=== PATIENT | male | born 1945 | race Caucasian/White ===

== ENCOUNTER 2017-02-14 23:32 | Emergency (ER) | payer MEDICARE, OTHER ==
[~2017-02-14] VITALS: Ht 167.6 cm; Wt 63.5 kg
--- NOTE | 2017-02-15 00:05 | NUR ---
PT A/OX1 PT BREATHING EFFORTLESSLY ON ROOM AIR, PT STATES SHE FELL ON HER LAST WRIST NUT DOES NOT KNOW WHEN SHE FELL, PT JOSE, PT ON MONITOR, IN GOWMD Tina AT BEDSIDE, WILL CONTINUE TO MONITOR.
--- NOTE | 2017-02-15 00:58 | NUR ---
[facility] ETA 30MINS.
[2017-02-15 01:52] VITALS: BP 104/58
--- NOTE | 2017-02-15 01:52 | NUR ---
Patient discharged to [facility] ambulance for transport back to [facility] in stable condition. Written and verbal after care instructions given to remote sensing analyst. EMT verbalizes understanding of instruction. Report given to receiving nurse at SNF by JORDAN Jimenez. AGUILA Oleary noted on DC. Denies complaint on DC.
== END 2017-02-15 01:55 ==
LOC: ER 23:38
DX: S60.222A Contusion of left hand, initial encounter (principal); E11.9 Type 2 diabetes mellitus without complications; F32.9 Major depressive disorder, single episode, unspecified; I10 Essential (primary) hypertension; M85.80 Other specified disorders of bone density and structure, unspecified site; F20.9 Schizophrenia, unspecified; X58.XXXA Exposure to other specified factors, initial encounter; Y92.89 Other specified places as the place of occurrence of the external cause; Y93.89 Activity, other specified; Y99.8 Other external cause status
CPT/HCPCS: 73130-TC; A4606; Z7610

== ENCOUNTER 2017-04-09 16:01 | Inpatient (IN) | payer MEDICARE, OTHER ==
[~2017-04-09] VITALS: Ht 177.8 cm; Wt 55.3 kg
--- NOTE | 2017-04-09 16:04 | NUR ---
LUIS F LOPEZ FROM [facility] TO ER BED 09. SENT BY PMD FOR ALLEN. REPORTS STATES FAILURE TO THRIVE. GOWNED AND PLACED ON MONITOR. STABLE VITALS [employer] MEMBER. AWAITING MD VILLA.
--- NOTE | 2017-04-09 16:28 | NUR ---
DR HAAS AT BEDSIDE FOR EVAL.
[2017-04-09] MEDS ORDERED: IV NS 0.9% 1,000 ML BAG IV ONE (16:30)
--- NOTE | 2017-04-09 16:35 | NUR ---
IV LINE STARTED BLOOD DRAWN AND SENT TO LAB.
[2017-04-09] MEDS ORDERED: FAMO20TA8 PO ×2 (16:50→17:12)
[2017-04-09] MEDS ORDERED: DIAZ5TAB4 PO (16:50)
[2017-04-09] MEDS ORDERED: DILT120C9 PO (16:50)
[2017-04-09] MEDS ORDERED: FERR-58 PO (16:50)
[2017-04-09] MEDS ORDERED: MEGE400O PO (16:50)
[2017-04-09] MEDS ORDERED: CETI-232 PO (16:50)
[2017-04-09] MEDS ORDERED: FOLI1TAB16 PO (16:50)
[2017-04-09] MEDS ORDERED: ALPR0.25 PO (16:50)
[2017-04-09] MEDS ORDERED: SERT50TA PO (16:50)
[2017-04-09] MEDS ORDERED: GABA-534 PO (16:50)
[2017-04-09] MEDS ORDERED: GLIP10TA11 PO (16:50)
[2017-04-09] MEDS ORDERED: DOCU100T2 PO (16:50)
[2017-04-09] MEDS ORDERED: NATE120T6 PO (16:50)
[2017-04-09] MEDS ORDERED: DABI75CA3 PO (16:50)
[2017-04-09] MEDS ORDERED: LEVO150T8 PO (16:50)
[2017-04-09] MEDS ORDERED: MONT10TA22 PO (16:50)
[2017-04-09] MEDS ORDERED: METO50TA3 PO (16:50)
[2017-04-09] MEDS ORDERED: GLIP5TAB13 PO (16:50)
[2017-04-09] MEDS ORDERED: ATOR20TA PO (16:50)
[2017-04-09] MEDS ORDERED: MULT-213 PO (16:50)
[2017-04-09 16:51] LABS: CALCIUM, SERUM 8.9 mg/dL (8.5-10.1); CARBON DIOXIDE 28 mmol/L (21-32); CHLORIDE 107 mmol/L (98-107); CREATININE 0.8 mg/dL (0.6-1.3); GLUCOSE 88 mg/dL (74-106); POTASSIUM 3.9 mmol/L (3.5-5.1); SODIUM SERUM 143 mmol/L (136-145); UREA NITROGEN, BLOOD 20 mg/dL (7-18)
[2017-04-09 16:52] LABS: BASOPHILS # (AUTO) 0.1 /CMM (0.0-0.2); BASOPHILS % (AUTO) 0.9 % (0.0-2.0); EOSINOPHILS % (AUTO) 0.9 % (0.0-6.0); HEMATOCRIT 40 % (33-45); HEMOGLOBIN 13.5 g/dL (11.5-14.8); LYMPHOCYTES # (AUTO) 2.1 /CMM (0.8-4.8); LYMPHOCYTES % (AUTO) 38.2 % (20.0-44.0); MEAN CORPUSCULAR HEMOGLOBIN 32 PG (26.0-33.0); MEAN CORPUSCULAR HGB CONC 34 g/dl (31.0-36.0); MEAN CORPUSCULAR VOLUME 97 fL (82-100); MONOCYTES # (AUTO) 0.4 /CMM (0.1-1.30); MONOCYTES % (AUTO) 7.7 % (2.0-12.0); NEUTROPHILS # (AUTO) 2.9 /CMM (1.8-8.9); NEUTROPHILS % (AUTO) 52.3 % (43.0-81.0); PLATELET COUNT (AUTO) 137 /CMM (150-450); RDW COEFFICIENT OF VARIATION 13.7 (11.5-15.0); RED BLOOD CELL COUNT(AUTO) 4.17 MIL/uL (4.0-5.2); WHITE BLOOD COUNT (AUTO) 5.6 K/uL (4.3-11.0)
[2017-04-09 16:53] LABS: INR 1.09 (0.87-1.13); PROTHROMBIN TIME 11.3 SECS (9.5-12.7)
--- NOTE | 2017-04-09 17:02 | NUR ---
RADIOLOGY AT BEDSIDE FOR CHEST XRAY.
[2017-04-09 17:05] LABS: APPEARANCE,URINE Clear (CLEAR); BILIRUBIN,URINE SMALL (NEGATIVE); BLOOD, URINE Trace-intact Ery/uL (NEGATIVE); COLOR,URINE Yellow (YELLOW); KETONES,URINE 15 (NEGATIVE); LEUKOCYTE ESTERASE ,URINE Negative (NEGATIVE); NITRITE, URINE Negative (NEGATIVE); PROTEIN,URINE Negative (NEGATIVE); UGLUCOSE Negative (NEGATIVE)
[2017-04-09 17:05] LABS: ALANINE AMINOTRANSFERASE 18 U/L (12-78); ALBUMIN 3.2 g/dL (3.4-5.0); ALKALINE PHOSPHATASE 45 U/L (46-116); ASPARTATE AMINOTRANSFERASE 20 U/L (15-37); BILIRUBIN,DIRECT 0.2 mg/dL (0.0-0.2); BILIRUBIN,TOTAL 0.8 mg/dL (0.2-1.0); TOTAL PROTEIN, SERUM 5.9 g/dL (6.4-8.2)
[2017-04-09 17:11] LABS: ACETAMINOPHEN < 2 ug/ml (10-30); SALICYLATE 0.2 mg/dL (2.8-20.0)
[2017-04-09] MEDS ORDERED: DIVA125C PO (17:12)
[2017-04-09] MEDS ORDERED: ACET-868 PO (17:12)
[2017-04-09] MEDS ORDERED: CHOL20004 PO (17:12)
[2017-04-09] MEDS ORDERED: PRAV20TA PO (17:12)
[2017-04-09] MEDS ORDERED: MIRT15TA PO (17:12)
[2017-04-09] MEDS ORDERED: MAG30ORA PO (17:12)
[2017-04-09] MEDS ORDERED: OLAN2.5T3 PO (17:12)
[2017-04-09] MEDS ORDERED: TEMA7.5C PO (17:12)
[2017-04-09] MEDS ORDERED: MAGN400O6 PO (17:12)
--- NOTE | 2017-04-09 17:14 | NUR ---
PT TO RADIOLOGY FOR HEAD CT SCAN VIA [facility].
[2017-04-09 17:22] LABS: BACTERIA,URINE Rare /HPF (None Seen); SQUAMOUS EPITHELIAL CELL,UR Few /HPF (None Seen); WBC,URINE NONE SEEN /HPF (0-3)
[2017-04-09 17:25] LABS: THYROID STIMULATING HORMONE 0.998 uIU/mL (0.358-3.74)
--- NOTE | 2017-04-09 17:57 | NUR ---
PATIENT GOINT TO [facility] 323-2, ACCEPTED BY DR RIVERA, DX FAILURE TO THRIVE
--- NOTE | 2017-04-09 18:22 | NUR ---
REPORT GIVEN TO DEMAR. PT AWAITING TRANSFER TO FLOOR.
--- NOTE | 2017-04-09 18:45 | NUR ---
RN Notes: Received report from Brien. Patient arrived to unit, alert oriented x1 stable with non-labored breathing. Vital signs: BP 105/51, pulse 64, RR 18, temp 98.0, SPO2 100%. No facial grimaces noted. IV site on right forearm patent and intact. Patient with family members. Bed in lowest position. Call light within reach. Will endorse to next shift.
[2017-04-09] MEDS ORDERED: ONDANSETRON HCL/PF 4 MG/2 ML VIAL IVP PRN (19:00)
[2017-04-09] MEDS ORDERED: ACETAMINOPHEN 325 MG TABLET PO PRN (19:00)
[2017-04-09] MEDS ORDERED: Z GUARD REMEDY 2 OZ OINT TP PRN (19:00)
--- NOTE | 2017-04-09 19:00 | NUR ---
MS RN OPENING NOTES RECEIVE PT RESTING IN BED, A/OX 1. NO S/S OF RESPIRATORY DISTRESS OR SOB. SAFETY MEASURES IN PLACE, ON LOW BED TO ENSURE SAFETY. CALL LIGHT WITHIN REACH. WILL CONTINUE TO MONITOR
--- NOTE | 2017-04-09 19:01 | NUR ---
MS RN NOTES PT ALERT TO SELF BUT CONFUSED, PT REFUSING TO EAT. WILL CONTINUE TO MONITOR
[2017-04-09 20:00] VITALS: BP 116/68
[2017-04-09] MEDS: IV D5/0.45 NACL 1,000 ML IV PRN (20:27)
[2017-04-09] MEDS: DIVALPROEX SODIUM 125 MG CAP.SPRINK PO SCH (21:00)
[2017-04-09] MEDS: OLANZAPINE 2.5 MG TABLET PO SCH (21:00)
--- NOTE | 2017-04-09 21:57 | NUR ---
MS RN NOTES PT REFUSED MEDICATION TYLENOL 325 MG 2 TABS PAIN COMPLAIN MILD PAIN AT RIGHT ABDOMEN / USE JORGE BROWN. UPON GIVING MEDICATION PATIENT PUT IN HER MOUTH AND SPIT IT, PER PATIENT SHE DOESN'T LIKE IT DESPITE RISKS AND BENEFITS OFFERED 3 TIMES PT REFUSED. SON ANTOINE AT BEDSIDE, AWARE
[2017-04-09] MEDS: ATORVASTATIN 10 MG TABLET PO SCH (22:00)
[2017-04-09] MEDS: TEMAZEPAM 7.5 MG CAPSULE PO SCH (22:00)
[2017-04-09] MEDS: MIRTAZAPINE 15 MG TABLET PO SCH (22:00)
--- NOTE | 2017-04-09 22:10 | NUR ---
MS RN NOTES ALL EVENING MEDICATIONS DUE UNABLE TO ADMINISTER PT IS REFUSING MEDICATIONS PO DESPITE RISKS AND BENEFITS OFFERED 3 TIMES STILL REFUSING SON AT BEDSIDE (ANTOINE) WILL MADE Kee AWARE ABOUT THIS
--- NOTE | 2017-04-09 23:54 | NUR ---
CODE STATUS 2220: PLACED A CALL AND SPOKE TO DR. MATIAS AMANDA HOSPITALIST CATERING ASSOCIATE FOR THE NIGHT REGARDING RESPONSIBLE LIBERTARIAN SON (ANTOINE NERI) WANTS HER MOTHER CODE STATUS TO BE DNR/DNI. WITNESSED BY CHARGE NURSE, PER MATIAS CHURCHILL AND ORDERED DNR/DNI CODE STATUS NOTED AND CARRIED OUT RELAYED ALSO PT IS REFUSING EVENING MEDICATIONS RP AWARE.
--- NOTE | 2017-04-10 01:31 | NUR ---
PATIENT REFUSES EKG AT THIS TIME. JORDAN DE LUNA NOTIFIED.
--- NOTE | 2017-04-10 02:12 | NUR ---
MS RN NOTES EKG AND TROPONIN I LAB BLOOD DRAW PATIENT REFUSES DESPITE RISKS AND BENEFITS OFFERED 3 TIMES STILL REFUSES RP AWARE AND MD PATIENT ACCOUNTS CLERK WILL TRY AGAIN LATER PER PATIENT SHE WANTED TO REST
[2017-04-10 04:00] VITALS: BP 110/70
[2017-04-10] MEDS: IV D5/0.45 NACL 1,000 ML IV PRN ×2 (04:35→14:05)
--- NOTE | 2017-04-10 06:22 | NUR ---
MS RN CLOSING NOTES PATIENT COMFORTABLY ASLEEP AND EASILY AWAKEN, HEAD OF BED ELEVATED FOR BETTER LUNG EXPANSION TOLERATING ROOM AIR 100% RFA G 20 D5 1/2 NS RUNNING IV SITE NO S/S OF INFILTRATED, PATIENT DENIES PAIN AT THIS TIME. RESPIRATIONS EVEN AND UNLABORED. NO S/S OF ACUTE DISTRESS, NO SOB, NO COUGH, NO CONGESTION, SKIN WARM AND DRY TO TOUCH, AFEBRILE, ALL NURSING CARE NEEDS PROVIDED AND RENDERED, REPOSITIONED EVERY 2 HOURS WITH CONE SEWER. KEPT CLEAN AND DRY AND COMFORTABLE, GOOD SKIN ARE PROVIDED. FREQUENT VISUAL CHECK DONE FOR SAFETY EVERY 2 HOURS. SAFE HAZARD FREE ENVIRONMENT PROVIDED. CALL LIGHT WITHIN EASY TO REACH, ON LOW BED AT ALL TIMES TO ENSURE SAFETY, WILL ENDORSE TO THE NEXT SHIFT CONTINUE PLAN OF CARE
--- NOTE | 2017-04-10 07:39 | NUR ---
KRISTY POON RN: INITIAL NOTE RECEIVED OT A/OX1. PT PREVIOUSLY REFUSING MEDICATIONS AND MD AWARE. SATING AT 97% ON ROOM AIR. NO DISTRESS NOTED. NO SOB NOTED. NO PAIN NOTED. INCONTINENT WITH DIAPER. SKIN INTACT. ON REGULAR DIET. RFA IV RUNNING D5 1/2 NS AT 125ML/HR. SITE CLEAR. NO REDNESS NOTED. NO BLEEDING NOTED. RESTING COMFORTABLY IN BED. CALL LIGHT WITHIN REACH.
[2017-04-10 07:53] LABS: BASOPHILS % (AUTO) 0.4 % (0.0-2.0); EOSINOPHILS % (AUTO) 0.8 % (0.0-6.0); HEMATOCRIT 41 % (33-45); HEMOGLOBIN 13.6 g/dL (11.5-14.8); LYMPHOCYTES # (AUTO) 1.7 /CMM (0.8-4.8); LYMPHOCYTES % (AUTO) 32.1 % (20.0-44.0); MEAN CORPUSCULAR HEMOGLOBIN 32 PG (26.0-33.0); MEAN CORPUSCULAR HGB CONC 33 g/dl (31.0-36.0); MEAN CORPUSCULAR VOLUME 97 fL (82-100); MONOCYTES # (AUTO) 0.5 /CMM (0.1-1.30); MONOCYTES % (AUTO) 8.9 % (2.0-12.0); NEUTROPHILS # (AUTO) 3.1 /CMM (1.8-8.9); NEUTROPHILS % (AUTO) 57.8 % (43.0-81.0); PLATELET COUNT (AUTO) 133 /CMM (150-450); RDW COEFFICIENT OF VARIATION 13.6 (11.5-15.0); RED BLOOD CELL COUNT(AUTO) 4.25 MIL/uL (4.0-5.2); WHITE BLOOD COUNT (AUTO) 5.3 K/uL (4.3-11.0)
[2017-04-10 08:00] VITALS: BP 119/60
[2017-04-10 08:02] LABS: ALANINE AMINOTRANSFERASE 20 U/L (12-78); ALKALINE PHOSPHATASE 45 U/L (46-116); ASPARTATE AMINOTRANSFERASE 20 U/L (15-37); BILIRUBIN,TOTAL 0.7 mg/dL (0.2-1.0); CALCIUM, SERUM 8.8 mg/dL (8.5-10.1); CARBON DIOXIDE 27 mmol/L (21-32); CHLORIDE 111 mmol/L (98-107); CREATININE 0.7 mg/dL (0.6-1.3); GLUCOSE 117 mg/dL (74-106); MAGNESIUM 2.2 mg/dL (1.8-2.4); PHOSPHORUS 2.1 mg/dL (2.5-4.9); POTASSIUM 4.2 mmol/L (3.5-5.1); SODIUM SERUM 143 mmol/L (136-145); TOTAL PROTEIN, SERUM 5.6 g/dL (6.4-8.2); UREA NITROGEN, BLOOD 11 mg/dL (7-18)
[2017-04-10 08:09] LABS: CHOLESTEROL 159 mg/dL (<200); HDL CHOLESTEROL 66 mg/dL (40-60); LDL 81 mg/dL (0-99); THYROID STIMULATING HORMONE 2.017 uIU/mL (0.358-3.74); TRIGLYCERIDES 49 mg/dL (30-150)
[2017-04-10] MEDS: CHOLECALCIFEROL 1,000 UNIT TABLET (VIT D3) PO SCH (08:31)
[2017-04-10] MEDS: DIVALPROEX SODIUM 125 MG CAP.SPRINK PO SCH ×2 (08:31→21:01)
[2017-04-10] MEDS: OLANZAPINE 2.5 MG TABLET PO SCH ×4 (08:31→21:08)
[2017-04-10] MEDS: FAMOTIDINE (20 MG) 20 MG TABLET PO SCH (08:31)
[2017-04-10 16:00] VITALS: BP 141/70
[2017-04-10] MEDS ORDERED: K PHOS NEUTRAL 250 MG TABLET PO ONE (16:30)
[2017-04-10] MEDS: BOOST PLUS FOOD-VANILLA 237 ML BOX PO SCH (17:14)
--- NOTE | 2017-04-10 18:48 | NUR ---
MED SURGE RN: CLOSING NOTE PT A/OX1. NO DISTRESS NOTED. SLIGHT PAIN NOTED IN LEFT HIP WHEN MOVING. Z-RAY DONE STAT. NO FRACTURES NOTED. INCONTINENT AND USES DIAPER. TOOK ALL MEDICATIONS ON TIME. NO ADVERSE REACTIONS NOTED. PT REFUSED TO EAT MEALS THROUGH OUT DAY. NOTIFIED AND AND AWARE. RFA IV RUNNING D5 1/2 NS AT 125ML/HR. SITE PATENT. PSYCH CONSULT WAS DONE. FAMILY AT BEDSIDE. RESTING COMFORTABLY IN BED. CALL LIGHT WITHIN REACH.
--- NOTE | 2017-04-10 19:45 | NUR ---
MS RN INITIAL NOTES PT SIS IN BED AWAKE AND ALERT WITH DAUGHTER AT BEDSIDE. NO SIGNS OF SOB OR DISTRESS BREATHING EVENLY AND UNLABORED ON ROOM. PT IS DIFFICULT WITH CARE, DAUGHTER AT BEDSIDE TO ASSIST. BED IS IN LOW AND LOCKED POSITION. WILL CONTINUE TO MONITOR.
[2017-04-10 20:00] VITALS: BP 131/76
[2017-04-10] MEDS: ATORVASTATIN 10 MG TABLET PO SCH (21:01)
[2017-04-10] MEDS: MIRTAZAPINE 15 MG TABLET PO SCH (21:01)
[2017-04-10] MEDS: TEMAZEPAM 7.5 MG CAPSULE PO SCH (21:02)
--- NOTE | 2017-04-10 22:00 | NUR ---
PT IS REFUSING MEDS, MULTIPLE ATTEMPTS HAVE BEEN MADE AND EDUCATION IS GIVEN BUT PT CONTINUES TO REFUSE
--- NOTE | 2017-04-10 23:10 | NUR ---
ATTEMPTED TO CONTACT SON DUE TO PT REFUSING MEDICATION AND BEING UNCOOPERATIVE AND COMBATIVE. UNABLE TO LEAVE A VOICEMAIL BECAUSE IT IS FULL AND DOESN'T ALLOW FOR IT.
--- NOTE | 2017-04-11 01:00 | NUR ---
PT CONTINUES TO BE COMBATIVE AND NONCOMPLIANT, PT REMOVED IV AND CLOTHING INCLUDING DIAPER AND THREW THE ARTICLES ON THE FLOOR. ATTEMPTED TO REORIENT PATIENT AND DEESCALATE THE SITUATION BUT PT REFUSES TO COOPERATE.
--- NOTE | 2017-04-11 02:52 | NUR ---
CONTACTED DR. SALCEDO, ORDER FOR SOFT WRIST RESTRAINTS WAS GIVEN. WILL CONTINUE TO MONITOR PT
[2017-04-11] MEDS: IV D5/0.45 NACL 1,000 ML IV PRN ×3 (06:03→23:28)
--- NOTE | 2017-04-11 06:43 | NUR ---
MS RN CLOSING PT IS IN BED RESTING. NO SIGNS OF SOB OR DISTRESS. SOFT RESTRAINTS ARE IN PLACE. INTERVENTIONS HAVE BEEN TAKEN THROUGHOUT THE SHIFT. NO SIGNS OF SOB OR DISTRESS. NEW IV WAS STARTED ON RFA#24. WILL ENDORSE TO DAYSHIFT
[2017-04-11 08:00] VITALS: BP 119/71
--- NOTE | 2017-04-11 08:00 | NUR ---
MS RN OPENING NOTE PATIENT IS ALERT AND ORIENTED x1. NO PAIN AT THIS TIME. NO SOB OR DISTRESS NOTED. CALL LIGHT WITHIN REACH. SAFETY MEASURES IMPLEMENTED. SOFT RESTRAINTS IN PLACE AT THIS TIME. IV INTACT AND PATENT NO REDNESS OR SWELLING NOTED, IV FLUIDS RUNNING AT THIS TIME. ABLE TO COMMUNICATE NEEDS AT TIME. WILL CONTINUE TO MONITOR
[2017-04-11 08:06] LABS: CALCIUM, SERUM 8.7 mg/dL (8.5-10.1); CARBON DIOXIDE 25 mmol/L (21-32); CHLORIDE 110 mmol/L (98-107); CREATININE 0.7 mg/dL (0.6-1.3); GLUCOSE 107 mg/dL (74-106); PHOSPHORUS 2.6 mg/dL (2.5-4.9); POTASSIUM 3.4 mmol/L (3.5-5.1); SODIUM SERUM 145 mmol/L (136-145); UREA NITROGEN, BLOOD 4 mg/dL (7-18)
[2017-04-11] MEDS: OLANZAPINE 2.5 MG TABLET PO SCH ×4 (09:13→21:06)
[2017-04-11] MEDS: FAMOTIDINE (20 MG) 20 MG TABLET PO SCH (09:13)
[2017-04-11] MEDS: CHOLECALCIFEROL 1,000 UNIT TABLET (VIT D3) PO SCH (09:13)
[2017-04-11] MEDS: DIVALPROEX SODIUM 125 MG CAP.SPRINK PO SCH ×2 (09:14→21:06)
[2017-04-11] MEDS: BOOST PLUS FOOD-VANILLA 237 ML BOX PO SCH ×2 (09:14→16:27)
[2017-04-11] MEDS ORDERED: POTASSIUM CHLORIDE 20 MEQ TAB.PRT.SR PO SCH (10:30)
--- NOTE | 2017-04-11 11:00 | NUR ---
MS RN NOTE PATIENT REFUSED POTASSIUM PILLS. EXPLAINED RISKS AND BENEFITS X3. PATIENT SPIT PILLS OUT. WILL ENDORSE TO [employer]BON SEQUESTRATION PLANT MANAGER NURSE
[2017-04-11 16:00] VITALS: BP 127/49
--- NOTE | 2017-04-11 18:50 | NUR ---
MS RN CLOSING NOTE PATIENT IS ALERT AND ORIENTED x1. PERIODS OF CONFUSION THROUGHOUT SHIFT. CALL LIGHT WITHIN REACH AT ALL TIMES. SAFETY MEASURES IMPLEMENTED. ALL DUE MEDICATIONS GIVEN ORDERED. ALL NURSING CARE NEEDS ATTENDED TO. TURNED AND REPOSITIONED Q2H AND NEEDED. FAMILY AT BEDSIDE, SOFT RESTRAINTS OFF AT THIS TIME. IV INTACT AND PATENT NO REDNESS OR SWELLING NOTED. WILL ENDORSE TO COMMUNICATION LECTURER NURSE FOR SAULO
--- NOTE | 2017-04-11 19:00 | NUR ---
MS RN OPENING NOTES RECEIVE PT RESTING IN BED, BILATERAL SOFT WRIST PRESENT, WITH GOOD CIRCULATION, PT A/OX 1. NO S/S OF RESPIRATORY DISTRESS OR SOB. SAFETY MEASURES IN PLACE, ON LOW BED TO ENSURE SAFETY. CALL LIGHT WITHIN REACH. WILL CONTINUE TO MONITOR
[2017-04-11 20:00] VITALS: BP 134/65
[2017-04-11] MEDS: MIRTAZAPINE 15 MG TABLET PO SCH (21:06)
[2017-04-11] MEDS: TEMAZEPAM 7.5 MG CAPSULE PO SCH (21:06)
[2017-04-11] MEDS: ATORVASTATIN 10 MG TABLET PO SCH (21:06)
--- NOTE | 2017-04-12 06:28 | NUR ---
MS RN CLOSING NOTES ASLEEP AND EASILY AWAKEN, RESPIRATIONS EVEN AND UNLABORED. NO S/S OF DISTRESS IN STABLE CONDITION. HEAD OF BED ELEVATED FOR BETTER LUNG EXPANSION AND GOOD CIRCULATION TOLERATING ROOM AIR 100% RFA G 24 D5 1/2 NS RUNNING 125CC/HR IV SITE NO S/S OF INFILTRATED, NO SOB, SKIN WARM AND DRY TO TOUCH, AFEBRILE, ALL NURSING CARE NEEDS PROVIDED AND RENDERED, REPOSITIONED EVERY 2 HOURS WITH CHAIN CARRIER. KEPT CLEAN AND DRY AND COMFORTABLE, GOOD SKIN CARE PROVIDED. FREQUENT VISUAL CHECK DONE FOR SAFETY EVERY 2 HOURS. SAFE HAZARD FREE ENVIRONMENT PROVIDED. CALL LIGHT WITHIN EASY TO REACH, ON LOW BED AT ALL TIMES TO ENSURE SAFETY, WILL ENDORSE TO THE NEXT SHIFT CONTINUE PLAN OF CARE. 1:1 BILATERAL WRIST RESTRAINT WITH GOOD CIRCULATION.
--- NOTE | 2017-04-12 07:51 | NUR ---
MS RN OPENING NOTE PATIENT IS ALERT AND ORIENTED x1. NO PAIN AT THIS TIME. NO SOB OR DISTRESS NOTED. CALL LIGHT WITHIN REACH. SAFETY MEASURES IMPLEMENTED. IV INTACT AND PATENT NO REDNESS OR SWELLING NOTED. IV FLUIDS RUNNING AT THIS TIME, TOLERATING WELL NO COMPLICATIONS. LABS THIS MORNING, AWAITING RESULTS. AWAITING DISCHARGE PLANNING. WILL CONTINUE TO MONITOR
[2017-04-12 08:00] VITALS: BP 134/82
[2017-04-12 08:11] LABS: CALCIUM, SERUM 8.7 mg/dL (8.5-10.1); CARBON DIOXIDE 30 mmol/L (21-32); CHLORIDE 109 mmol/L (98-107); CREATININE 0.6 mg/dL (0.6-1.3); GLUCOSE 109 mg/dL (74-106); POTASSIUM 3.5 mmol/L (3.5-5.1); SODIUM SERUM 143 mmol/L (136-145); UREA NITROGEN, BLOOD 3 mg/dL (7-18)
[2017-04-12] MEDS: BOOST PLUS FOOD-VANILLA 237 ML BOX PO SCH ×2 (09:03→16:16)
[2017-04-12] MEDS: DIVALPROEX SODIUM 125 MG CAP.SPRINK PO SCH ×2 (09:04→21:40)
[2017-04-12] MEDS: CHOLECALCIFEROL 1,000 UNIT TABLET (VIT D3) PO SCH (09:04)
[2017-04-12] MEDS: OLANZAPINE 2.5 MG TABLET PO SCH ×4 (09:04→21:40)
[2017-04-12] MEDS: FAMOTIDINE (20 MG) 20 MG TABLET PO SCH (09:04)
[2017-04-12 16:00] VITALS: BP 131/71
--- NOTE | 2017-04-12 18:39 | NUR ---
MS RN CLOSING NOTE PATIENT IS COMFORTABLE IN BED AT THIS TIME. NO CHANGE IN CONDITION. SAFETY MEASURES IMPLEMENTED. CALL LIGHT WITHIN REACH AT ALL TIMES. NO FACIAL GRIMACING NOTED FOR PAIN. NO SOB OR DISTRESS NOTED. ALL DUE MEDICATIONS GIVEN ORDERED BY MD. IV INTACT AND PATENT, FLUIDS RUNNING AT THIS TIME. AWAITING DISCHARGE TO [facility], CASE MANAGEMENT AND FAMILY AWARE. WILL ENDORSE TO INBOUND SALES MANAGER NURSE FOR SAULO
[2017-04-12] MEDS: IV D5/0.45 NACL 1,000 ML IV PRN (18:56)
--- NOTE | 2017-04-12 19:00 | NUR ---
MS RN OPENING NOTES RECEIVE PT RESTING IN BED, FAMILY AT BEDSIDE, A/OX 1. NO S/S OF RESPIRATORY DISTRESS OR SOB. SAFETY MEASURES IN PLACE, ON LOW BED TO ENSURE SAFETY. CALL LIGHT WITHIN REACH. WILL CONTINUE TO MONITOR
[2017-04-12 20:00] VITALS: BP 138/77
[2017-04-12] MEDS: TEMAZEPAM 7.5 MG CAPSULE PO SCH (21:40)
[2017-04-12] MEDS: ATORVASTATIN 10 MG TABLET PO SCH (21:40)
[2017-04-12] MEDS: MIRTAZAPINE 15 MG TABLET PO SCH (21:40)
[2017-04-13] MEDS: IV D5/0.45 NACL 1,000 ML IV PRN (02:58)
--- NOTE | 2017-04-13 06:26 | NUR ---
MS RN CLOSING NOTES PT ASLEEP AND EASILY AWAKEN, HOB, PT ON 1:1 BILATERAL WRIST RESTRAINT WITH GOOD CIRCULATION. TOLERATING ROOM AIR 100%. RFA G 24 D5 1/2 NS RUNNING 125CC/HR IV SITE NO S/S OF INFILTRATED, NO S/S OF RESPIRATORY DISTRESS IN STABLE CONDITION. NO SOB, SKIN WARM AND DRY TO TOUCH, AFEBRILE, NEEDS ATTENDED AND ANTICIPATED. NURSING CARE RENDERED. KEPT CLEAN AND DRY AND COMFORTABLE, REPOSITIONED EVERY 2 HOURS WITH PARK MANAGER. GOOD SKIN CARE PROVIDED. FREQUENT VISUAL CHECK DONE FOR SAFETY EVERY 2 HOURS. SAFE HAZARD FREE ENVIRONMENT PROVIDED. NO SAULO THROUGHOUT THE SHIFT. CALL LIGHT WITHIN EASY TO REACH, ON LOW BED AT ALL TIMES TO ENSURE SAFETY, WILL ENDORSE TO THE NEXT SHIFT CONTINUE PLAN OF CARE.
--- NOTE | 2017-04-13 07:22 | NUR ---
MS RN OPENING NOTE REPORT RECEIVED ON THE PATIENT. RESTING IN THE BED WITH THE EYES CLOSED. CHEST RISING EQUALLY BILATERALLY. NO SOB OR DISTRESS NOTED. BED IS IN THE LOWEST POSITION, LOCKED, SIDE RAILS UP X 3, BED ALARM IS ON. CALL LIGHT WITHIN REACH. SAFETY MEASURES IMPLEMENTED. SOFT RESTRAINTS IN PLACE AT THIS TIME. WILL CONTINUE TO MONITOR.
[2017-04-13 08:00] VITALS: BP 119/72
[2017-04-13] MEDS: BOOST PLUS FOOD-VANILLA 237 ML BOX PO SCH (09:20)
[2017-04-13] MEDS: CHOLECALCIFEROL 1,000 UNIT TABLET (VIT D3) PO SCH (09:22)
[2017-04-13] MEDS: FAMOTIDINE (20 MG) 20 MG TABLET PO SCH (09:22)
[2017-04-13] MEDS: DIVALPROEX SODIUM 125 MG CAP.SPRINK PO SCH (09:22)
[2017-04-13] MEDS: OLANZAPINE 2.5 MG TABLET PO SCH ×2 (09:32→13:00)
--- NOTE | 2017-04-13 09:36 | NUR ---
MS RN NOTE DR Johnnie RIVERA AT THE BEDSIDE. PER DR. RIVERA PATIENT CAN BE TRANSFERRED TO [facility]. WILL COLLABORATE WITH CASE MANAGEMENT.
--- NOTE | 2017-04-13 13:30 | NUR ---
MS RN NOTE IV CATHETER INFILTRATED. RN REMOVED THE CATHETER AND APPLIED OCCLUSIVE DRESSING. PATIENT TOLERATED PROCEDURE WELL. CATHETER TIP IS INTACT. NO S/S OF INFECTION.
--- NOTE | 2017-04-13 14:57 | NUR ---
MS RN NOTE CALLED TO GIVE REPORT TO [facility]. LEFT A VOICEMAIL ASKING TO CALL ME BACK FOR REPORT.
--- NOTE | 2017-04-13 15:05 | NUR ---
MS RN NOTE Called to [facility] again. Left a voicemeail to Cecil Atkins at the [facility]. Waiting for Cecil to call back.
--- NOTE | 2017-04-13 16:18 | NUR ---
MS PRECINCT I POLICE SERGEANT NOTE Patient left the unit in a stable condition via gurney accompanied by the son and the ambulance staff. Discharge instruction provided to pt/family. Discharge instruction sent to accepting facility with the ambulance staff. Will ttempt to call [facility] for report again.
--- NOTE | 2017-04-13 16:22 | NUR ---
MS RN NOTE Attempted to call [facility] again. Left another voicemail to Cecil Atkins asking to call me back for the report.
--- NOTE | 2017-04-13 16:29 | NUR ---
MS RN NOTE HENNA THE CHARGE NURSE SPOKE TO HANDLE SEWER HIRA. PER HIRA'S REPORT CASE MANAGEMENT OF [facility] IS NOTIFIED THAT PATIENT IS CURRENTLY BEING TRANSPORTED TO THEM.
== END 2017-04-13 16:15 | DRG 640 ==
LOC: ER 16:02 → EDSEX 16:02 → MED 18:47
PROVIDERS: ADMIT Internal Medicine; ATTEND Internal Medicine
DX: R62.7 Adult failure to thrive (principal); E43 Unspecified severe protein-calorie malnutrition; G93.40 Encephalopathy, unspecified; R45.851 Suicidal ideations; K57.92 Diverticulitis of intestine, part unspecified, without perforation or abscess without bleeding; F03.90 Unspecified dementia, unspecified severity, without behavioral disturbance, psychotic disturbance, mood disturbance, and anxiety; E11.9 Type 2 diabetes mellitus without complications; E87.6 Hypokalemia; Z66 Do not resuscitate; I10 Essential (primary) hypertension; I25.10 Atherosclerotic heart disease of native coronary artery without angina pectoris; F32.9 Major depressive disorder, single episode, unspecified; Z79.899 Other long term (current) drug therapy; Z79.84 Long term (current) use of oral hypoglycemic drugs; F25.0 Schizoaffective disorder, bipolar type; F29 Unspecified psychosis not due to a substance or known physiological condition
CPT/HCPCS: 36415; 70450-TC; 71010-TC; 73502; 80048-TC; 80053-TC; 80061-TC; 80076-TC; 81000-TC; 83735-TC; 84100-TC; 84443-TC; 84484-TC; 85025-TC; 85730-TC; 87081-TC; 87086-TC; 92611-TC; A4606; G0480; J3490; J7030; Z7610